=== PATIENT | female | born 1975 | race Caucasian/White ===

== ENCOUNTER → 2020-09-02 | Outpatient (CLI) | payer BC ==
[~2020-09-02] MED LIST: AUGMENTIN 875-1 EACH PO; CARBATROL200 MG PO; CYANOCOBAL1000 MCG/1 INJ; FLONASE 0.05% N16 GM; GABAPENTIN600 MG PO; NORCO 5-325 TA1 EACH PO; OMNICEF 300 MG300 MG PO; SINGULAIR10 MG PO; TOPAMAX 100 MG100 MG PO; ZYRTEC10 M3 PO
== END ==
LOC: EXRD 11:01
DX: R13.10 Dysphagia, unspecified (principal); M54.2 Cervicalgia; M54.16 Radiculopathy, lumbar region; M25.512 Pain in left shoulder; M25.551 Pain in right hip; E04.1 Nontoxic single thyroid nodule; M16.11 Unilateral primary osteoarthritis, right hip; M43.8X6 Other specified deforming dorsopathies, lumbar region; M47.812 Spondylosis without myelopathy or radiculopathy, cervical region; G89.29 Other chronic pain
CPT/HCPCS: 72040; 72100; 73030; 73502; 76536

== ENCOUNTER → 2020-09-23 | Outpatient (CLI) | payer BC | LOC: EXRD 13:48 | DX: M25.511 Pain in right shoulder (principal); M25.619 Stiffness of unspecified shoulder, not elsewhere classified; V87.7XXA Person injured in collision between other specified motor vehicles (traffic), initial encounter; J90 Pleural effusion, not elsewhere classified | CPT/HCPCS: 71101; 73030 ==

== ENCOUNTER → 2021-04-09 | Outpatient (CLI) | payer BC | LOC: EXRD 09:37 | DX: U07.1 COVID-19 (principal) | CPT/HCPCS: 71046 ==